=== PATIENT | male | born 1955 | race Caucasian/White ===

== ENCOUNTER 2017-02-18 11:36 | Emergency (ER) | payer OTHER ==
[2017-02-18 12:35] VITALS: BP 138/80
--- NOTE | 2017-02-18 13:27 | UC ---
Hip/Pelvis Pain - HPI Summary HPI Summary: 61 yo male with right hip pain x 1 week no trauma recalled pain over greater troch hurts to roll onto right side - History Of Current Complaint Chief Complaint: UCLowerExtremity Stated Complaint: HIP PAIN Time Seen by Provider: 02/18/17 12:59 Hx Obtained From: Patient Onset/Duration: Gradual Onset, Lasting Days Timing: Constant Severity Initially: Moderate Severity Currently: Moderate Pain Intensity: 4 Pain Scale Used: 0-10 Numeric Location: Discrete At: Character Of Pain: Sharp, Aching Aggravating Factor(s): Movement, Other - pressure on right troch Alleviating Factor(s): Position Associated Signs And Symptoms: Positive: Negative - Allergies/Home Medications Allergies/Adverse Reactions: Allergies Allergy/AdvReac Type Severity Reaction Status Date / Time Penicillins Allergy Unknown Unknown Verified 02/18/17 12:31 Reaction Details Home Medications: Home Medications Atorvastatin* [Lipitor*] 40 mg PO DAILY 02/18/17 [History Confirmed 02/18/17] DULoxetine DR CAP* [Cymbalta CAP*] 20 mg PO DAILY 02/18/17 [History Confirmed ] Rcynnuwlpif-Papnzamvkhv-Afmugr [Move Free Joint Health Ad] 1 tab PO DAILY [History Confirmed 02/18/17] Ibuprofen TAB* [Motrin TAB* 600 MG] 600 mg PO BID 02/18/17 [History Confirmed ] Metoprolol Succinate XL TAB* [Toprol XL TAB*] 25 mg PO DAILY 02/18/17 [History Confirmed 02/18/17] PMH/Surg Hx/FS Hx/Imm Hx Previously Healthy: Yes - Surgical History Surgical History: Yes Surgery Procedure, Year, and Place: APPY, [place], [facility] - Family History Known Family History: Positive: Hypertension Negative: Cardiac Disease, Diabetes - Social History Alcohol Use: None Substance Use Type: None Smoking Status (MU): Never Smoked Tobacco Review of Systems Constitutional: Negative Skin: Negative Eyes: Negative ENT: Negative Respiratory: Negative Cardiovascular: Negative Gastrointestinal: Negative Genitourinary: Negative Motor: Negative Neurovascular: Negative Musculoskeletal: Arthralgia Neurological: Negative Psychological: Negative Is Patient Immunocompromised?: No All Other Systems Reviewed And Are Negative: Yes Physical Exam Triage Information Reviewed: Yes Appearance: Well-Appearing, No Pain Distress, Well-Nourished Vital Signs: Initial Vital Signs Temp 97.0 F 02/18/17 12:31 Pulse 58 02/18/17 12:31 Resp 16 02/18/17 12:31 BP 138/80 02/18/17 12:31 Pulse Ox 98 02/18/17 12:31 Eyes: Positive: Conjunctiva Clear ENT: Positive: Hearing grossly normal. Negative: Nasal congestion, Nasal drainage, Trismus, Muffled/hoarse voice Neck: Positive: Supple, Nontender Respiratory: Positive: Lungs clear, Normal breath sounds, No respiratory distress, No accessory muscle use Cardiovascular: Positive: RRR, No Murmur Musculoskeletal: Positive: ROM Intact, No Edema Neurological Exam: Normal Neurological: Positive: Alert Psychological Exam: Normal Skin Exam: Normal Diagnostics - Radiology No standard instances Xray Interpretation: Positive (See Comments) Radiology Interpretation Completed By: Radiologist - calcific tendonopathy Hip Injury Course/Dx - Differential Dx/Diagnosis Provider Diagnoses: right greater trocanteric burisitis. right hip calcific tendonitis Discharge - Discharge Plan Condition: Stable Disposition: HOME Prescriptions: Naproxen TAB* [Naprosyn 375 mg TAB*] 375 mg PO Q8H PRN #30 tab PRN Reason: Pain Patient Education Materials: Hip Bursitis (ED), Calcific Tendinitis (ED) Referrals: Ellis Zamora MD [Medical Doctor] - 5 Days Additional Instructions: heat Images Front/Back of Body, Lg (Banks): 1 - tender greater troch
--- NOTE | 2017-02-18 14:27 | RAD ---
HISTORY: Right hip pain COMPARISONS: None VIEWS: 3, Frontal view of the pelvis with frontal and frog-leg views of the right hip FINDINGS: BONE DENSITY: Normal. BONES: There is no displaced fracture. JOINTS: There is mild osteoarthritis of the hips and SI joints bilaterally. ALIGNMENT: There is no dislocation. SOFT TISSUES: There is soft tissue calcification along the greater trochanter OTHER FINDINGS: Mild degenerative changes are noted within the spine IMPRESSION: 1. MILD OSTEOARTHRITIS. 2. SOFT TISSUE CALCIFICATION ALONG THE GREATER TROCHANTER SUGGESTIVE OF A CALCIFIC TENDINOPATHY. 3. NO ACUTE OSSEOUS INJURY. IF SYMPTOMS PERSIST, RECOMMEND REPEAT IMAGING
== END 2017-02-18 14:01 | disposition home or self-care (01) ==
LOC: UCCORT 11:36
DX: M70.61 Trochanteric bursitis, right hip (principal)
CPT/HCPCS: 99211; G0463

== ENCOUNTER 2017-05-01 07:11 | Emergency (ER) | payer OTHER ==
[2017-05-01 07:44] VITALS: BP 122/67
--- NOTE | 2017-05-01 07:45 | UC ---
Respiratory Complaint HPI - HPI Summary HPI Summary: 61 yo gentleman c/o progressively worse cough, upper resp / sinus congestion. Sx started approx 6 days ago, improved with cough medicine otc and staying in bed. But returned to work yesterday (indoor / outdoor), and felt much worse last night. Low grade temp. No GI sx reported. No rash. Denies palpitations or chest pain. Reports that a fib is sporadic, not taking anticoagulants. Hx pneumonia, most recently approx 1 year ago. Follows with pcp, Dr. Nick Lema, in [place]. Has used nebulizer in that past but not this past week. 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 but generally has maintained health - Surgical History Surgical History: Yes Surgery Procedure, Year, and Place: APPY, [place], [facility] - Family History Known Family History: Positive: None, Hypertension Negative: Cardiac Disease, Diabetes - Social History Alcohol Use: Rare Substance Use Type: None Smoking Status (MU): Never Smoked Tobacco - Immunization History Most Recent Influenza Vaccination: not this season Review of Systems Constitutional: Fatigue Skin: Negative Eyes: Negative ENT: Sinus Congestion Respiratory: Cough Cardiovascular: Negative Gastrointestinal: Negative Genitourinary: Negative Motor: Negative Neurovascular: Negative Musculoskeletal: Negative Neurological: Negative Psychological: Negative Is Patient Immunocompromised?: No All Other Systems Reviewed And Are Negative: Yes Physical Exam Triage Information Reviewed: Yes Appearance: Well-Nourished - sitting up. conversing easily and appropriately, in full sentances. Vital Signs: Initial Vital Signs Temp 98.1 F 05/01/17 07:21 Pulse 79 12/19/17 07:21 Resp 20 05/01/17 07:21 BP 122/67 05/01/17 07:21 Pulse Ox 98 05/01/17 07:21 Vital Signs Reviewed: Yes Eye Exam: Normal - grossly normal ENT: Positive: Pharyngeal erythema - mild post pharyng redness, no sores appreciated. Uvula mild edematous, but patent., Nasal congestion, TM dull Neck exam: Normal Neck: Positive: Supple, Nontender Respiratory Exam: Other - + bilat rhonchorus cough, with scattered exp wheeze. BS equal. Respiratory: Positive: Chest non-tender, No respiratory distress, No accessory muscle use, Respiratory distress, Wheezing Cardiovascular Exam: Normal Cardiovascular: Positive: RRR - Heart sounds regular rate and rhythm by auscultation, without obvious irreg beat. HR correlates with left radial pulse. , No Murmur, Pulses Normal, Brisk Capillary Refill Abdominal Exam: Normal Abdomen Description: Positive: Nontender Musculoskeletal Exam: Normal - gait steady. moves x 4 ext's. Neurological Exam: Normal - grossly nonfocal Psychological Exam: Normal - conversing easily and appropriately. Skin Exam: Normal - nondiaphoretic. No visible or reported rash. Diagnostic Evaluation - Laboratory O2 Sat by Pulse Oximetry: 98 Respiratory Course/Dx - Course Course Of Treatment: Declines nebulizer in [facility]. Will accept rx for home. CXR - report in [facility]. NAD. No new problems in [facility]. Questions as posed answered to the best of my ability. - Differential Dx/Diagnosis Provider Diagnoses: Acute bronchitis. Discharge - Discharge Plan Condition: Stable Disposition: HOME Prescriptions: Ciprofloxacin TAB* [Cipro 500 MG TAB*] 500 mg PO BID #20 tab Levalbuterol 0.63MG/3ML NEB* [Xopenex 0.63MG/3ML NEB*] 0.63 mg INH Q6H PRN #1 box PRN Reason: Wheezing Levalbuterol HFA INHALER* [Xopenex Hfa Inhaler*] 1 puff INH Q4H PRN #1 mdi PRN Reason: Wheezing Forms: *Work Release Referrals: Bhavna Lema MD [Primary Care Provider] - Additional Instructions: Avoid "decongestants" in over the counter cold medications. Avoid taking the antibiotic within 2 hours of taking omeprazole. Follow up with Dr. Lema, if possible next week for respiratory recheck. Seek medical attention for worse or new problems in the meantime.
--- NOTE | 2017-05-01 08:00 | RAD ---
INDICATION: Cough and shortness of breath x1 week COMPARISON: Chest x-ray dated April 09, 2011 TECHNIQUE: PA and lateral views of the chest were obtained. FINDINGS: The heart and mediastinum are normal in size and contour. The lungs are grossly clear. There is no evidence of large pleural effusion. Visualized bones are normal for the patient's age. There is no radiographic evidence of free air beneath the diaphragm IMPRESSION: No radiographic evidence of acute cardiopulmonary disease.
== END 2017-05-01 08:26 | disposition home or self-care (01) ==
LOC: UCCORT 07:11
DX: J20.9 Acute bronchitis, unspecified (principal); I48.91 Unspecified atrial fibrillation; Z88.0 Allergy status to penicillin; Z87.01 Personal history of pneumonia (recurrent)
CPT/HCPCS: 71020; 99212; G0463

== ENCOUNTER 2019-02-19 16:07 | Emergency (ER) | payer OTHER ==
--- OUTSIDE RECORDS SUMMARY | 2019-02-19 16:23 | XMS REPORT | Continuity of Care Document ---
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 Problems Active Problems Provider Date Electrocardiogram abnormal Washington Malhotra M.D., [facility] Onset: 2014 Atrial fibrillation Washington Malhotra M.D., [facility] Onset: 08/03/2014 Sinus node dysfunction Washington Malhotra M.D., [facility] Onset: 09/07/2014 Social History Type Date Description Comments Sex Unknown Tobacco Use Start: Unknown Never Smoked Cigarettes ETOH Use Has consumed alcohol in history of binge the past drinking Tobacco Use Start: Unknown Patient has never smoked Recreational Drug Use Never Used Drugs Exercise Type/Frequency Does not exercise Allergies, Adverse Reactions, Alerts Active Allergies Reaction Severity Comments Date Penicillin 07/08/2014 Digoxin excessive bradycardia per pt 08/03/2014 Medications Active Medications SIG Qnty Indications Ordering Provider Date Venlafaxine HCL ER 1 by mouth every Unknown 150mg day Tablets ER 24HR Aspirin Low Dose 1 by mouth every Unknown 81mg day Tablets Metoprolol Succinate 1 by mouth every Unknown ER day 25mg Tablets ER 24HR Valsartan 1 by mouth every Unknown 40mg Tablets day Lipitor 1 by mouth at Unknown 40mg Tablets bedtime Prilosec OTC 1 by mouth every Unknown 20mg Tablets day DR Alprazolam 1 by mouth twice Unknown 0.5mg Tablets a day as needed Immunizations Description No Information Available Vital Signs Date Vital Result Comment 09/07/2014 8:37am Height 70 inches 5'10" Weight 232.50 lb w/o shoes Heart Rate 60 /min reg BP Systolic Sitting 130 mmHg Ra, reg cuff BP Diastolic Sitting 80 mmHg Ra, reg cuff BP Systolic Standing 126 mmHg Ra BP Diastolic Standing 90 mmHg Ra Respiratory Rate 18 /min BMI (Body Mass Index) 33.4 kg/m2 Ejection Fraction 55-60% 08/17/14 08/03/2014 11:44am Height 70 inches 5'10" Weight 233.00 lb with shoes Heart Rate 66 /min regular BP Systolic 122 mmHg left arm reg cuff BP Diastolic 76 mmHg left arm reg cuff BP Systolic Sitting 124 mmHg right arm reg cuff BP Diastolic Sitting 80 mmHg right arm reg cuff BP Systolic Standing 130 mmHg right arm reg cuff BP Diastolic Standing 80 mmHg right arm reg cuff Respiratory Rate 18 /min BMI (Body Mass Index) 33.4 kg/m2 Results Description No Information Available Procedures Description No Information Available Medical Devices Description No Information Available Encounters Description No Information Available Assessments Description No Information Available Plan of Treatment 09/07/2014 - Washington Malhotra M.D., [facility], [id number] Tachybrady SyndromeComments:As discussed, no heart artery blockages noted and your heart is very strong. Also no need for pacemaker at this time. Please stop all alcohol and caffeine ingestion.Follow up:one year Functional Status Description No Information Available Mental Status Description No Information Available Referrals Description No Information Available
--- OUTSIDE RECORDS SUMMARY | 2019-02-19 16:23 | XMS REPORT | Continuity of Care Document ---
:1955 External Reference #:[id number] Author Name [facility] (transmitted by agent of provider Leydi [place]) Address 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 Problems Active Problems Provider Date [facility]ogram [facility] On[facility]: 2014 Atrial fibrillation [facility] Onset: 08/03/2014 Essential hypertension Washington Malhotra M.D., [facility] Onset: 01/10/2019 Difficulty breathing [facility] Onset: 01/10/2019 Paroxysmal atrial fibrillation [facility] Onset: Sinus node dysfunction [facility].D[facility] Onset: 09/07/2014 Social History Type Date Description Comments Sex Unknown Tobacco Use Start: Unknown Never Smoked Cigarettes Smoking Status Reviewed: 01/10/19 Never Smoked Cigarettes ETOH Use Has consumed alcohol in history of binge the past drinking ETOH Use Rarely consumes alcohol Tobacco Use Start: Unknown Patient has never smoked Recreational Drug Use Never Used Drugs Exercise Type/Frequency Does not exercise other than work Allergies, Adverse Reactions, Alerts Active Allergies Reaction Severity Comments Date Penicillin 07/08/2014 Digoxin excessive bradycardia per pt 08/03/2014 Medications Active Medications SIG Qnty Indications Ordering Provider Date Metoprolol Succinate 1 by mouth every Unknown ER day 25mg Tablets ER 24HR Valsartan 1 by mouth every Unknown 40mg Tablets day Prilosec OTC 1 by mouth every Unknown 20mg Tablets day DR Alprazolam 1 by mouth twice Unknown 0.5mg Tablets a day as needed Cymbalta 1 by mouth every Unknown 20mg Caps DR day Part Advil 1 tab by mouth Unknown 200mg Tablets as needed Proair HFA as needed Su Roche, 108(90Base) LANGUAGE PATH-C mcg/Act Aerosol Immunizations Description No Information Available Vital Signs Date Vital Result Comment 01/10/2019 12:16pm Height 69.50 inches 5'9.50" Weight 246.00 lb Heart Rate 68 /min regular BP Systolic 128 mmHg Ra Large Cuff BP Diastolic 86 mmHg Ra Large Cuff BP Systolic Sitting 132 mmHg LA Large Cuff BP Diastolic Sitting 84 mmHg LA Large Cuff BP Systolic Standing 134 mmHg LA Large Cuff BP Diastolic Standing 96 mmHg LA Large Cuff Respiratory Rate 16 /min Pain Level 0 O2 % BldC Oximetry 96 % BMI (Body Mass Index) 35.8 kg/m2 09/07/2014 8:37am Height 70 inches 5'10" Weight 232.50 lb w/o shoes Heart Rate 60 /min reg BP Systolic Sitting 130 mmHg Ra, reg cuff BP Diastolic Sitting 80 mmHg Ra, reg cuff BP Systolic Standing 126 mmHg Ra BP Diastolic Standing 90 mmHg Ra Respiratory Rate 18 /min BMI (Body Mass Index) 33.4 kg/m2 Ejection Fraction 55-60% 08/17/14 Results Description No Information Available Procedures Date Code Description Status 01/10/2019 65887 EKG Tracing & Interpretation Completed Medical Devices Description No Information Available Encounters Type Date Location Provider Dx Diagnosis Office Visit 01/10/2019 Cardiology Washington Sheets R94.31 Abnormal 1:00p Services Of Juan Malhotra M.D., electrocardiogram [ECG] AT [facility] [EKG] I48.0 Paroxysmal atrial fibrillation R06.00 Dyspnea, unspecified I10 Essential (primary) hypertension Assessments Date Code Description Provider 01/10/2019 R94.31 Abnormal electrocardiogram [ECG] [EKG] Washington Malhotra M.D., [facility] 01/10/2019 I48.0 Paroxysmal atrial fibrillation [facility] 01/10/2019 R06.00 Dyspnea, unspecified Washington Malhotra M.D., [facility], [place] 01/10/2019 I10 Essential (primary) hypertension Washington Malhotra M.D., [facility] NA[facility] Plan of Treatment Future Appointment(s):02/07/2019 10:45 am - Washington Malhotra M.D., [facility] NAIK at [facility]02/03/2019 9:15 am - Washington Malhotra M.D., [facility] NAIK at [facility]02/03/2019 8:45 am - Ica ECHO Schedule at [facility]01/21/2019 9:00 am - Nurse Visit IC at [facility]01/20/2019 9:00 am - Traveling ECHO 2 at [facility]01/20/2019 9:30 am - Nurse Visit IC at [facility]01/10/2019 - Washington Malhotra M.D., [facility], [id number] Abnormal electrocardiogram [ECG] [EKG]Comments:As discussed, we will further evaluate your heart. Please avoid alcohol, caffeine and Sudafed. Stay hydrated. Call if severe lightheaded and/or faint. Avoid Ibuprofen and use Tylenol as needed.Follow up:after cardiac testing.I48.0 Paroxysmal atrial fibrillationNew Orders:Stress Test, Treadmill, No Imaging, Scheduled: 02/03/19Holter Monitor, Scheduled: 01/20/19R06.00 Dyspnea, unspecifiedNew Orders:Echocardiogram, Scheduled: 01/20/19I10 Essential (primary) hypertension Functional Status Description No Information Available Mental Status Description No Information Available Referrals Description No Information Available
--- OUTSIDE RECORDS SUMMARY | 2019-02-19 16:23 | XMS REPORT | Continuity of Care Document ---
:1955 External Reference #:[id number] Author Name Washington Malhotra M.D., [facility] (transmitted by agent of provider Leydi Spring) Address [address] 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 Problems Active Problems Provider Date Electrocardiogram abnormal Washington Malhotra M.D., [facility] Onset: 2014 Atrial fibrillation Washington Malhotra M.D., [facility] Onset: 08/03/2014 Sinus node dysfunction Washington Malhotra M.D., [facility] Onset: 09/07/2014 Paroxysmal atrial fibrillation Washington Malhotra M.D., [facility] Onset: Difficulty breathing Washington Malhotra M.D., [facility] Onset: 01/10/2019 Essential hypertension Washington Malhotra M.D., [facility] Onset: 01/10/2019 Thoracic aortic ectasia [facility] Onset: 02/07/2019 Social History Type Date Description Comments Sex Unknown Tobacco Use Start: Unknown Never Smoked Cigarettes Smoking Status Reviewed: 02/07/19 Never Smoked Cigarettes ETOH Use Has consumed [...] Qnty Indications Ordering Provider Date Metoprolol Succinate ER 1 by mouth every Unknown day 25mg Tablets ER 24HR Valsartan 1 by mouth every Unknown 40mg Tablets day Prilosec OTC 1 by mouth every Unknown 20mg Tablets day Alprazolam 1 by mouth twice Unknown 0.5mg Tablets a day as needed Cymbalta 1 by mouth every Unknown 20mg Caps Part day Proair HFA as needed Su Roche, 108(90Base) [employer]ANT-C mcg/Act Aerosol Aspirin 81 1 by mouth every Unknown 81mg Tablets DR day Acetaminophen 2 every 6 hours Unknown 500mg Tablets as needed History Medications Advil 1 tab by mouth as Unknown 02/06/2019 - 02/06/2019 200mg Tablets needed Immunizations Description No Information Available Vital Signs Date Vital Result Comment 02/07/2019 10:14am Height 69.50 inches 5'9.50" Weight 252.12 lb with shoes Heart Rate 70 /min left radial BP Systolic Sitting 130 mmHg BP Diastolic Sitting 84 mmHg BP Systolic Standing 128 mmHg BP Diastolic Standing 82 mmHg BMI (Body Mass Index) 36.7 kg/m2 Ejection Fraction 60-65% Echo 01/20/19 01/10/2019 12:16pm Height 69.50 inches 5'9.50" Weight [...] % BMI (Body Mass Index) 35.8 kg/m2 Results Description No Information Available Procedures Date Code Description Status 02/03/2019 09042 Stress Test Completed 01/21/2019 43840 Holter Monitor Review (24 hr) review & interp only Completed 01/20/2019 33845 ECHO Transthoracic, Real-Time 2D With Doppler And Color Completed Flow 01/20/2019 06519 ECHO Transthoracic, Real-Time 2D With Doppler And Color Completed Flow 01/20/2019 62296 ECG Monitor/Recording W/Visual Superimposition Scanning Completed 01/10/2019 16573 EKG Tracing & Interpretation Completed Medical Devices Description No Information Available Encounters Type Date Location Provider Dx Diagnosis Office Visit 01/10/2019 Cardiology Washington Sheets R94.31 Abnormal 1:00p Services Of Juan Malhotra M.D., electrocardiogram [ECG] AT [facility], [facility] [EKG] I48.0 Paroxysmal atrial fibrillation R06.00 Dyspnea, unspecified I10 Essential (primary) hypertension R00.1 Bradycardia, unspecified Assessments Date Code Description Provider 02/07/2019 I77.810 Thoracic aortic ectasia Washington Malhotra M.D., [facility], [facility] 02/03/2019 I48.0 Paroxysmal atrial fibrillation Washington Malhotra M.D., [facility] , [facility] 01/21/2019 I48.0 Paroxysmal atrial fibrillation Washington Malhotra M.D., [facility] , [facility] 01/20/2019 R06.00 Dyspnea, unspecified Washington Malhotra M.D., [facility], [facility] 01/20/2019 I48.0 Paroxysmal atrial fibrillation Nurse Visit IC 01/20/2019 R06.00 Dyspnea, unspecified Traveling ECHO 2 01/10/2019 R94.31 Abnormal electrocardiogram [ECG] Washington Malhotra M.D., [facility], [EKG] [facility] 01/10/2019 I48.0 Paroxysmal atrial fibrillation Washington Malhotra M.D., [facility] , [facility] 01/10/2019 R06.00 Dyspnea, unspecified Washington Malhotra M.D., [facility], [facility] 01/10/2019 I10 Essential (primary) hypertension Washington Malhotra M.D., [facility] , [facility] 01/10/2019 R00.1 Bradycardia, unspecified Washington Malhotra M.D., [facility] Plan of Treatment 02/07/2019 - [place] [facility] Thoracic aortic ectasiaNew Orders:Echocardiogram, Ordered: 02/07/19Comments:As discussed, your heart seems to be doing well. Please continue to avoid caffeine and alcohol. Youraorta is mildly enlarged so please try to avoid lifting more than 30 lbs and I will recheck it next year.Follow up:one year after echo Functional Status Description No Information Available Mental Status Description No Information Available Referrals Description No Information Available
--- NOTE | 2019-02-19 19:30 | ED ---
Abdominal Pain/Male - HPI Summary HPI Summary: Pt is a 63 y/o M presenting to the ED for a chief complaint of abdominal pain. On 02/18/19 at approximately 02:00, pt felt lower abdominal pain that has worsened since initial onset. Pt reports tenderness in the LLQ, left testicular pain, and fever. Pt had a sharp pain near the umbilicus one week ago that has since resolved. Pt denies testicular swelling, dysuria, nausea, vomiting, or diarrhea. Pt has a PMHx of HTN, atrial fibrillation, mildly enlarged aorta, and diastasis recti. Pt has a PSHx of appendectomy and cholecystectomy. - History of Current Complaint Chief Complaint: EDAbdPain Stated Complaint: LT FLANK PAIN PER PT Time Seen by Provider: 02/19/19 19:02 Hx Obtained From: Patient Onset/Duration: Sudden Onset, Lasting Hours, Still Present Timing: Lasting Hours Severity Initially: Mild Severity Currently: Mild Pain Intensity: 2 Pain Scale Used: 0-10 Numeric Location: Discrete At: LLQ Radiates: No Aggravating Factor(s): Nothing Alleviating Factor(s): Nothing Associated Signs And Symptoms: Positive: Fever, Other - Negative testicular swelling. Negative: Urinary Symptoms - Negative dysuria, Nausea, Vomiting, Diarrhea - Allergies/Home Medications Allergies/Adverse Reactions: Allergies Allergy/AdvReac Type Severity Reaction Status Date / Time Penicillins Allergy Unknown Verified 02/19/19 16:17 Reaction Details Home Medications: Home Medications Aspirin EC TAB* [Ecotrin EC Low Dose 81 MG*] 81 mg PO DAILY 02/19/19 [History Confirmed 02/19/19] DULoxetine DR CAP* [Cymbalta CAP*] 20 mg PO BID 02/19/19 [History Confirmed 01/30] Losartan TAB* [Cozaar TAB*] 25 mg PO DAILY 02/19/19 [History Confirmed 02/19/19] Metoprolol Succinate XL TAB* [Toprol XL TAB*] 25 mg PO DAILY 02/19/19 [History Confirmed 02/19/19] Omeprazole CAP (NF) [Prilosec CAP* 20 MG] 20 mg PO DAILY 02/19/19 [History Confirmed 02/19/19] PMH/Surg Hx/FS Hx/Imm Hx Previously Healthy: Yes Cardiovascular History: Reports: Hx Atrial Fibrillation, Hx Hypertension, Other Cardiovascular Problems/Disorders - Enlarged aorta GI History: Reports: Other GI Disorders - Diastasis recti - Surgical History Surgical History: Yes Surgery Procedure, Year, and Place: APPY, [place], [facility] Infectious Disease History: No Infectious Disease History: Denies: Traveled Outside the [place] in Last 30 Days - Family History Known Family History: Positive: Hypertension Negative: Cardiac Disease, Diabetes - Social History Lives: With Family Alcohol Use: Rare Hx Substance Use: No Substance Use Type: Reports: None Hx Tobacco Use: No Smoking Status (MU): Never Smoked Tobacco Review of Systems Positive: Fever Positive: Abdominal Pain - Lower, Other - Positive tenderness in LLQ. Negative : Vomiting, Diarrhea, Nausea Positive: other - Negative testicular swelling; positive left testicular pain. Negative: dysuria All Other Systems Reviewed And Are Negative: Yes Physical Exam - Summary Physical Exam Summary: Constitutional: Well-developed, Well-nourished, Alert. (-) Distressed Skin: Warm, Dry HENT: Normocephalic; Atraumatic Eyes: Conjunctiva normal Neck: Musculoskeletal ROM normal neck. (-) JVD, (-) Stridor, (-) Nuchal rigidity Cardio: Rhythm regular, rate normal, Heart sounds normal; Intact distal pulses; Radial pulses are 2+ and symmetric. (-) Murmur Pulmonary/Chest wall: Effort normal. (-) Respiratory distress, (-) Wheezes, (-) Rales Abd: Soft, LLQ tenderness, (-) Distension, (-) Guarding, (-) Rebound Musculoskeletal: (-) Edema Lymph: (-) Cervical adenopathy Neuro: Alert, Oriented x3 Psych: Mood and affect Normal : No swelling or erythema of left testicle, no inguinal hernia Triage Information Reviewed: Yes Vital Signs On Initial Exam: Initial Vitals Temp Pulse Resp BP Pulse Ox 100.4 F 76 16 137/92 98 02/19/19 16:15 02/19/19 16:15 02/19/19 16:15 02/19/19 16:15 02/19/19 16:15 Vital Signs Reviewed: Yes Procedures - Sedation Patient Received Moderate/Deep Sedation with Procedure: No Diagnostics - Vital Signs Vital Signs Temp Pulse Resp BP Pulse Ox 02/19/19 16:15 100.4 F 76 16 137/92 98 - Laboratory Result Diagrams: 02/19/19 19:12 02/19/19 19:12 Lab Statement: Any lab studies that have been ordered have been reviewed, and results considered in the medical decision making process. - CT Abdomen/Pelvis CT CT Interpretation Completed By: Radiologist Summary of CT Findings: Abdomen/Pelvis CT IMPRESSION: Distal descending colon diverticulitis. No perforation or abscess. Reviewed by ED physician. - Ultrasound Testicular US Ultrasound Interpretation Completed By: Radiologist Summary of Ultrasound Findings: Testicular US IMPRESSION: 1. Sonographically normal testicles and epididymides. 2. Appendix testis. Reviewed by ED physician. Re-Evaluation - Re-Evaluation 1st re-eval Re-Evaluation Time: 20:20 Comment: Pt was updated about imaging results. Pt will be discharged home with a diagnosis of diverticulitis. Abdominal Pain Male Course/Dx - Course Course Of Treatment: 63 y/o male p/w LLQ TTP and testicular pain. - PE w LLQ TTP, no testicular pain or swelling. Will check labs to assess for infection, CT abdomen and pelvis to assess for diverticulitis or mass lesion of the causing pain, ultrasound of the scrotum however lower suspicion and think that his scrotal pain is likely secondary to referred pain as he has no tenderness on exam. - Diagnoses Provider Diagnoses: Diverticulitis Discharge ED - Sign-Out/Discharge Documenting (check all that apply): Patient Departure - Discharge - Discharge Plan Condition: Stable Disposition: HOME Prescriptions: Ciprofloxacin TAB* [Cipro 500 MG TAB*] 500 mg PO BID 7 Days #14 tab metroNIDAZOLE [Flagyl 500 MG TAB] 500 mg PO TID #1 tab Patient Education Materials: Diverticulitis (ED) Referrals: Angela Ballesteros DO [Primary Care Provider] - Additional Instructions: You were seen in the emergency department for abdominal pain. Your abdomen/ pelvis CT showed diverticulitis. Please take ciprofloxacin twice a day and flagyl three times per day. If any studies were not completed at the time of discharge you will be called with the relevant results. Please follow up with your primary care doctor in the next 2-3 days and return to the emergency department for worsening pain, fevers, vomiting, or concerning symptoms. It was a pleasure taking care of you today - Billing Disposition and Condition Condition: STABLE Disposition: Home - Attestation Statements Document Initiated by Scribe: Yes Documenting Scribe: Kaylah Gonzalez Provider For Whom Scribe is Documenting (Include Credential): Ron Cabrera MD Scribe Attestation: I, Kaylah Gonzalez, scribed for Ron Cabrera MD on 02/19/19 at 2231. Scribe Documentation Reviewed: Yes Provider Attestation: The documentation as recorded by the scribe, Kaylah Gonzalez accurately reflects the service I personally performed and the decisions made by me, Ron Cabrera MD Status of Scribe Document: Viewed
[2019-02-19 19:38] LABS: Hematocrit 42 % (42-52); Hemoglobin 14.6 g/dL (14.0-18.0); Mean Corpuscular HGB Conc 35 g/dL (31-36); Mean Corpuscular Hemoglobin 30 pg (27-31); Mean Corpuscular Volume 86 fL (80-94); Mean Platelet Volume 6.8 fL (7.4-10.4); Platelet Count 281 10^3/uL (150-450); Red Blood Count 4.87 10^6 /uL (4.18-5.48); Red Cell Distribution Width 13 % (10-15); White Blood Count 11.7 10^3/uL (3.5-10.8)
[2019-02-19 19:50] LABS: Albumin 4.3 g/dL (3.2-5.2); Albumin/Globulin Ratio 1.4 (1-3); BUN/Creatinine Ratio 14.6 (8-20); Calcium 9.5 mg/dL (8.6-10.3); EGFR African American 104.8 (>60); EGFR Non-African American 86.6 (>60); Potassium 4.1 mmol/L (3.5-5.0); Total Bilirubin 0.9 mg/dL (0.2-1.0); Total Protein 7.3 g/dL (6.4-8.9)
[2019-02-19 20:05] LABS: ABS Basophils 0.1 10^3/ul (0-0.2); ABS Eosinophils 0.2 10^3/ul (0-0.6); ABS Lymphocytes 2.1 10^3/ul (1.0-4.8); ABS Monocytes 1.7 10^3/ul (0-0.8); ABS Neutrophils 7.7 10^3/ul (1.5-7.7); Eosinophil % 1.3 %; Lymphocyte % 18.1 %
[2019-02-19 20:52] LABS: Urine Appearance Clear; Urine Bilirubin Negative (Negative); Urine Blood Negative (Negative); Urine Color Yellow; Urine Glucose Negative (Negative); Urine Ketones Negative (Negative); Urine Nitrite Negative (Negative); Urine Protein Negative (Negative); Urine Specific Gravity 1.011 (1.010-1.030); Urine Urobilinogen Negative (Negative)
[2019-02-19] MEDS ORDERED: Iohexol 300* (CONTRAST) 10 ML SDV IV ONE (21:44)
[2019-02-19] MEDS ORDERED: metroNIDAZOLE TAB* 250 MG PO ONE (22:36)
[2019-02-19] MEDS ORDERED: Ciprofloxacin TAB* 500 MG PO ONE (22:36)
[2019-02-19 22:55] VITALS: BP 136/83
== END 2019-02-19 22:50 | disposition home or self-care (01) ==
LOC: ED 16:07
DX: K57.92 Diverticulitis of intestine, part unspecified, without perforation or abscess without bleeding (principal); N50.819 Testicular pain, unspecified; R10.32 Left lower quadrant pain; R50.9 Fever, unspecified; Z88.0 Allergy status to penicillin; Z79.82 Long term (current) use of aspirin; Z79.899 Other long term (current) drug therapy; I48.91 Unspecified atrial fibrillation; I10 Essential (primary) hypertension
CPT/HCPCS: 36415; 74177; 76870; 80053; 81003; 83690; 85025; 99283; A9270-GY; Q9967